=== PATIENT | male | born 1985 ===

== ENCOUNTER 2017-11-18 08:27 | Emergency (ER) | payer OTHER ==
[2017-11-18 08:41] VITALS: BP 161/101
[2017-11-18] MEDS ORDERED: Lidocaine/Epineph/Tetraca SOL* (LET solution) 4 ML BTL TOPICAL ONE (09:09)
--- NOTE | 2017-11-18 09:41 | RAD ---
INDICATION: Pain at the left hand between thumb and index finger COMPARISON: None. TECHNIQUE: 5 views of the left hand were obtained. FINDINGS: On the lateral view of the hand and external metallic marker is seen overlying the mid-level metacarpal palmar surface of the hand. There is no radiographically opaque foreign body seen overlying the subcutaneous tissue. The adequately corticated bones are in normal alignment. No significant focal osseous abnormality or fracture is seen. Joint spaces appear maintained. IMPRESSION: No radiographically apparent foreign body or other acute abnormality the left hand. If the patient's symptoms persist, follow-up imaging is recommended.
--- NOTE | 2017-11-18 13:32 | UC ---
Skin Complaint HPI - HPI Summary HPI Summary: Yesterday patient noticed a red, tender inflamed area on his left palm. Denies any trauma to the area. No fever. Up-to-date tetanus. - History of Current Complaint Chief Complaint: UCUpperExtremity Time Seen by Provider: 11/18/17 08:48 Stated Complaint: L HAND COMPLAINT Hx Obtained From: Patient Onset/Duration: Sudden Onset, Lasting Days, Still Present Timing: Constant Onset Severity: Moderate Current Severity: Moderate Pain Intensity: 6 Pain Scale Used: 0-10 Numeric Location: Discrete - LEFT PALM Character: Pain, Redness Aggravating Factor(s): Touch Alleviating Factor(s): Nothing Associated Signs & Symptoms: Positive: Tenderness - Allergy/Home Medications Allergies/Adverse Reactions: Allergies Allergy/AdvReac Type Severity Reaction Status Date / Time No Known Allergies Allergy Verified 11/18/17 08:40 Home Medications: Home Medications Hydrochlorothiazide TAB* [Hydrodiuril TAB*] 12.5 mg PO DAILY 11/18/17 [History Confirmed 11/18/17] Review of Systems Constitutional: Negative Skin: Other - ABSCESS LEFT PALM Respiratory: Negative Cardiovascular: Negative Gastrointestinal: Negative All Other Systems Reviewed And Are Negative: Yes PMH/Surg Hx/FS Hx/Imm Hx Cardiovascular History: Hypertension - Surgical History Surgical History: None - Family History Known Family History: Positive: Hypertension - Social History Alcohol Use: Weekly Substance Use Type: Marijuana Substance Use Comment - Amount & Last Used: 2 times a week Smoking Status (MU): Never Smoked Tobacco Physical Exam Triage Information Reviewed: Yes Appearance: Well-Appearing, No Pain Distress, Well-Nourished Vital Signs: Initial Vital Signs Temp 97.8 F 11/18/17 08:29 Pulse 99 11/18/17 08:29 Resp 18 11/18/17 08:29 BP 161/101 11/18/17 08:29 Pulse Ox 99 11/18/17 08:29 Vital Signs Reviewed: Yes Eyes: Positive: Conjunctiva Clear ENT: Positive: Hearing grossly normal Neck: Positive: Supple Respiratory: Positive: No respiratory distress, No accessory muscle use Cardiovascular: Positive: Pulses Normal Abdomen Description: Positive: Soft Musculoskeletal: Positive: No Edema Neurological: Positive: Alert Psychological: Positive: Age Appropriate Behavior Skin: Positive: Other - 4MM ABSCESS LEFT PALMAR CREASE. MILDLY TENDER Diagnostics - Radiology LEFT HAND XRAY Xray Interpretation: No Acute Changes Radiology Interpretation Completed By: Radiologist Course/Dx - Course Course Of Treatment: NO FB SEEN ON XRAY. TOPICAL LET APPLIED FOR ANESTHESIA. 11 BLADE USED TO INCISE ABSCESS. SMALL AMOUNT OF BLOODY PUS EXPRESSED. SENT FOR CX. KEFLEX. HOT SOAKS. F/U IF NOT IMPROVING. - Diagnoses Provider Diagnoses: ABSCESS LEFT PALM Procedures - Incision and Drainage Left Hand Volar Site: LEFT PALM Anesthesia: Topical Instrument(s): Scalpel Discharge - Sign-Out/Discharge Documenting (check all that apply): Patient Departure All imaging exams completed and their final reports reviewed: Yes - Discharge Plan Condition: Stable Disposition: HOME Prescriptions: Cephalexin CAP* [Keflex 500 CAP*] 1,000 mg PO BID #28 cap Patient Education Materials: Abscess (ED) Referrals: [facility] [Provider Group] - If Needed Additional Instructions: NO FOREIGN BODY SEEN ON XRAY TODAY. SPECIMEN OF PURULENT MATERIAL SENT FOR CULTURE. TAKE ANTIBIOTIC FOR FULL 7 DAYS. WARM/HOT COMPRESSES/SOAKS AT LEAST 4 TIMES DAILY OTC MEDS NEEDED FOR DISCOMFORT. SEEK FOLLOW-UP IF YOU DEVELOP SPREADING REDNESS OF THE SKIN, CONTINUED PURULENT DRAINAGE, FEVER, INCREASED PAIN OR ANY OTHER CONCERNING SYMPTOMS. - Billing Disposition and Condition Condition: STABLE Disposition: Home
--- NOTE | 2017-11-20 15:32 | UC ---
- Progress Note Progress Note: + staph epidermidis await sensitivities no changes deedeej 11/20/2017 Discharge - Sign-Out/Discharge Documenting (check all that apply): Post-Discharge Follow Up All imaging exams completed and their final reports reviewed: Yes - Discharge Plan Condition: Stable Disposition: HOME Prescriptions: Cephalexin CAP* [Keflex 500 CAP*] 1,000 mg PO BID #[id number] cap Patient Education Materials: Abscess (ED) Referrals: [facility] [Provider Group] - If Needed Additional Instructions: NO FOREIGN BODY SEEN ON XRAY TODAY. SPECIMEN OF PURULENT MATERIAL SENT FOR CULTURE. TAKE ANTIBIOTIC FOR FULL 7 DAYS. WARM/HOT COMPRESSES/SOAKS AT LEAST 4 TIMES DAILY OTC MEDS NEEDED FOR DISCOMFORT. SEEK FOLLOW-UP IF YOU DEVELOP SPREADING REDNESS OF THE SKIN, CONTINUED PURULENT DRAINAGE, FEVER, INCREASED PAIN OR ANY OTHER CONCERNING SYMPTOMS. - Billing Disposition and Condition Condition: STABLE Disposition: Home
== END 2017-11-18 10:29 | disposition home or self-care (01) ==
LOC: EDBD 08:27 → UCEAST 08:27
DX: L02.512 Cutaneous abscess of left hand (principal); I10 Essential (primary) hypertension
CPT/HCPCS: 10060; 87070; 87205; 87640; 87641; 99202; G0463